=== PATIENT | female | born 1985 | race Caucasian/White ===

== ENCOUNTER 2017-09-18 16:58 | Observation (INO) | payer SELFPAY ==
[2017-09-18] MEDS ORDERED: NS 1000 ML 1,000 ML IV SCH (18:00)
[2017-09-18] MEDS: PHENERGAN INJ 25 MG IV PRN ×2 (18:34→22:36)
[2017-09-18] MEDS: ROCEPHIN VIAL 1 GM 1 GM in NS 100 ML IV + SPIKE MINIBAG* 100 ML IV SCH (18:34)
[2017-09-18] MEDS: DEMEROL INJ IVP PRN ×2 (18:35→22:36)
[2017-09-18 18:41] VITALS: BMI 29.9
[2017-09-18 18:45] LABS: ALBUMIN 2.4 g/dL (3.4-5.0); CALCIUM 8.1 mg/dL (8.5-10.1); CARBON DIOXIDE 26.9 mmol/L (21-32); COR CA(FOR HYPOALB) 9.4 mg/dL (8.5-10.1); CREATININE 3.62 mg/dL (0.55-1.02); TOTAL PROTEIN 6.7 g/dL (6.4-8.2)
[2017-09-18 18:55] LABS: BASOPHILS % (AUTO) 0.1 % (0.2-1.0); EOSINOPHILS # (AUTO) 0.2 x10^3/uL (0.0-0.2); EOSINOPHILS % (AUTO) 0.8 % (0.9-2.9); HEMATOCRIT 31.1 % (36.0-47.0); HEMOGLOBIN 10.9 g/dL (12.0-16.0); LYMPHOCYTES # (AUTO) 0.6 X10^3/uL (1.3-2.9); LYMPHOCYTES % (AUTO) 3.1 % (21.0-51.0); MEAN CORPUSCULAR HEMOGLOBIN 29.8 pg (27.0-34.0); MEAN CORPUSCULAR HGB CONC 34.9 g/dL (33.0-35.0); MEAN CORPUSCULAR VOLUME 85.4 fL (80.0-100.0); MONOCYTES # (AUTO) 0.6 x10^3/uL (0.3-0.8); MONOCYTES % (AUTO) 2.8 % (0.0-13.0); NEUTROPHILS # (AUTO) 19.4 x10^3/uL (2.2-4.8); NEUTROPHILS % (AUTO) 93.2 % (42.0-75.0); PLATELET COUNT 148 X10^3/uL (150.0-450.0); RED BLOOD COUNT 3.64 X10^6/uL (3.5-5.4); RED CELL DISTRIBUTION WIDTH 14.1 % (11.6-16.5); WHITE BLOOD COUNT 20.9 X10^3/uL (3.6-10.0)
[2017-09-18 19:03] LABS: BILIRUBIN,URINE NEGATIVE (NEGATIVE); GLUCOSE, URINE NEGATIVE (NEGATIVE); KETONES,URINE NEGATIVE (NEGATIVE); NITRITES,URINE NEGATIVE (NEGATIVE); UROBILINOGEN,URINE NORMAL (NORMAL)
[2017-09-18 19:04] LABS: BLOOD/HEMOGLOBIN,URINE 3+ (NEGATIVE); LEUKOCYTE ESTERASE ,URINE 2+ (NEGATIVE); PROTEIN,URINE 3+ (NEGATIVE)
[2017-09-18 19:14] LABS: APPEARANCE,URINE HAZY (CLEAR); COLOR,URINE YELLOW (YELLOW)
[2017-09-18 19:15] LABS: BACTERIA,URINE 1+ /HPF (NEGATIVE); RBC,URINE 0-5 /HPF (NONE SEEN); SQUAMOUS EPITHELIAL CELL,UR RARE /HPF (NEGATIVE)
[2017-09-18] MEDS ORDERED: NS 1000 ML 1,000 ML IV ONE ×3 (19:27→21:30)
[2017-09-18 19:31] LABS: BAND NEUTROPHILS % 13 % (0-10); PLATELET MORPHOLOGY COMMENT ABNORMAL (NORMAL)
--- NOTE | 2017-09-18 21:11 | RAD ---
HISTORY: Abdominal Pain Study: Frontal view of the chest, flat and upright views of the abdomen Comparison: None. Findings: Cardiomediastinal silhouette is normal in size. No focal consolidations, pleural effusions or pneumot horax. Ill-defined nodule in the right upper lobe. Osseous structures are without acute abnormality. Flat and upright views of the abdomen demonstrates a normal bowel gas pattern. No free air. No abnor mal calcifications or abnormal soft tissue shadows. No acute bony abnormalities. IMPRESSION: 1. No acute cardiopulmonary disease. 2. No evidence for acute abdominal pathology. 3. Ill-defined right upper lobe nodule. This could be further evaluated with CT of the chest. Reported By:
[2017-09-18] MEDS: PROTONIX INJ 40 MG VIAL IVP SCH (21:50)
[2017-09-18] MEDS ORDERED: MAGNESIUM SULFATE 1 GM/100 mL PREMIX 1 GM/100 ML BAG IV ONE (23:00)
[2017-09-19] MEDS: LR 1000 ML IV 1,000 ML with POTASSIUM CHLORIDE INJ 20 MEQ VIAL 20 MEQ IV SCH ×6 (00:45→14:00)
[2017-09-19] MEDS: DEMEROL INJ IVP PRN ×4 (03:19→21:10)
[2017-09-19] MEDS: PHENERGAN INJ 25 MG IV PRN ×4 (03:19→21:21)
[2017-09-19 05:10] LABS: BASOPHILS % (AUTO) 0 % (0.2-1.0); EOSINOPHILS # (AUTO) 0.1 x10^3/uL (0.0-0.2); EOSINOPHILS % (AUTO) 0.8 % (0.9-2.9); HEMATOCRIT 28.6 % (36.0-47.0); LYMPHOCYTES # (AUTO) 1.1 X10^3/uL (1.3-2.9); LYMPHOCYTES % (AUTO) 6.5 % (21.0-51.0); MEAN CORPUSCULAR HEMOGLOBIN 29.8 pg (27.0-34.0); MEAN CORPUSCULAR VOLUME 85.1 fL (80.0-100.0); MEAN PLATELET VOLUME 9.3 fL (7.4-11.0); MONOCYTES # (AUTO) 0.8 x10^3/uL (0.3-0.8); MONOCYTES % (AUTO) 4.7 % (0.0-13.0); NEUTROPHILS # (AUTO) 14.7 x10^3/uL (2.2-4.8); PLATELET COUNT 106 X10^3/uL (150.0-450.0); RED BLOOD COUNT 3.36 X10^6/uL (3.5-5.4); RED CELL DISTRIBUTION WIDTH 14.1 % (11.6-16.5); WHITE BLOOD COUNT 16.7 X10^3/uL (3.6-10.0)
[2017-09-19 05:21] LABS: ALBUMIN 1.8 g/dL (3.4-5.0); CALCIUM 7.3 mg/dL (8.5-10.1); CARBON DIOXIDE 22.2 mmol/L (21-32); COR CA(FOR HYPOALB) 9.1 mg/dL (8.5-10.1); CREATININE 2.34 mg/dL (0.55-1.02); TOTAL PROTEIN 5.4 g/dL (6.4-8.2)
[2017-09-19] MEDS ORDERED: TAMIFLU PO SCH (10:00)
[2017-09-19] MEDS: PROTONIX INJ 40 MG VIAL IVP SCH ×2 (10:05→21:10)
[2017-09-19] MEDS: MAGIC MOUTHWASH MT PRN (10:05)
[2017-09-19] MEDS: ROCEPHIN VIAL 1 GM 1 GM in NS 100 ML IV + SPIKE MINIBAG* 100 ML IV SCH (10:05)
[2017-09-19] MEDS: TUSSIONEX PENNKINETIC SUSP PO PRN (10:05)
--- NOTE | 2017-09-19 10:16 | DR.UPDATE ---
H&P Update History and Physical Update: WAS SEEN IN THE OFFICE ON 02/15/2018. SHE WAS ADMITTED FOR DEHYDRATION, INFLUENZA, AND ABDOMINAL PAIN, S/P HYSTERECTOMY 3 WEEKS AGO. A H&P WAS COMPLETED PRIOR TO ADMISSION. PATIENT HAS BEEN SEEN AND EXAMINED WITH NO CHANGES NOTED TO H&P. Changes noted: NO Yes with the following:
[2017-09-19] MEDS: NICOTINE PATCH TD SCH (10:22)
[2017-09-19] MEDS: DUONEB 0.5 MG/3 MG NEB SCH ×4 (10:36→20:51)
--- NOTE | 2017-09-19 10:49 | CT ---
CT CHEST WITH IV CONTRAST HISTORY: Lung nodule Comparison: None Technique: Multiple axial images of the chest were obtained from the thoracic inlet to the upper abdo men after the administration of IV contrast.Dose reduction techniques including Automated Exposure Co ntrol (AEC) and adjustment of mA and kV were utlized. Findings: The heart is normal in size. No pericardial effusion. No suspicious mediastinal or axillary lymph no hemanth. Although not optimized to detect pulmonary embolism, no large central pulmonary emboli are seen. No focal consolidations, pleural effusions or pneumothorax. Scattered bibasilar dependent atelectasis Airways are patent. No suspicious pulmonary nodules or masses. Limited images of the upper abdomen are unremarkable. No aggressive osseous lesions. Old anterior right 2nd rib fracture of the likely source of finding on chest x-ray. IMPRESSION: 1. Old anterior right 2nd rib fracture is likely source of finding on chest x-ray. No suspicious pul monary nodules. Reported By:
[2017-09-19] MEDS: ZESTRIL TAB 10 MG PO SCH (12:20)
[2017-09-19] MEDS: ROBITUSSIN DM PO SCH ×3 (12:20→21:09)
[2017-09-19] MEDS ORDERED: ZOFRAN TAB 4 MG PO PRN (12:22)
[2017-09-19] MEDS ORDERED: TYLENOL 325 MG TAB PO PRN (15:29)
[2017-09-19] MEDS ORDERED: LEVAQUIN PREMIX IV 750 MG 750 MG/150 ML BAG IV SCH ×2 (16:00→17:00)
[2017-09-19] MEDS ORDERED: TYLENOL 325 MG TAB PO ONE (16:07)
[2017-09-19] MEDS ORDERED: LEVAQUIN PREMIX IV 750 MG 750 MG/150 ML BAG IV ONE (16:07)
[2017-09-19] MEDS: FORTAZ or TAZICEF INJ 1 GM in NS 100 ML IV + SPIKE MINIBAG* 100 ML IV SCH ×2 (16:18→21:10)
[2017-09-19] MEDS: CHECK PATCH XX SCH (21:11)
[2017-09-20] MEDS: LR 1000 ML IV 1,000 ML with POTASSIUM CHLORIDE INJ 20 MEQ VIAL 20 MEQ IV SCH ×6 (00:45→18:17)
[2017-09-20] MEDS: PHENERGAN INJ 25 MG IV PRN ×5 (02:11→21:38)
[2017-09-20] MEDS: DEMEROL INJ IVP PRN ×5 (02:11→21:37)
[2017-09-20] MEDS: FORTAZ or TAZICEF INJ 1 GM in NS 100 ML IV + SPIKE MINIBAG* 100 ML IV SCH ×3 (05:19→21:32)
[2017-09-20 06:17] LABS: BASOPHILS % (AUTO) 0.1 % (0.2-1.0); EOSINOPHILS # (AUTO) 0.1 x10^3/uL (0.0-0.2); EOSINOPHILS % (AUTO) 0.4 % (0.9-2.9); HEMATOCRIT 30.6 % (36.0-47.0); HEMOGLOBIN 10.4 g/dL (12.0-16.0); LYMPHOCYTES % (AUTO) 16.4 % (21.0-51.0); MEAN CORPUSCULAR HEMOGLOBIN 29.2 pg (27.0-34.0); MEAN CORPUSCULAR HGB CONC 33.9 g/dL (33.0-35.0); MEAN CORPUSCULAR VOLUME 86.3 fL (80.0-100.0); MEAN PLATELET VOLUME 9.6 fL (7.4-11.0); MONOCYTES # (AUTO) 0.9 x10^3/uL (0.3-0.8); MONOCYTES % (AUTO) 7.9 % (0.0-13.0); NEUTROPHILS # (AUTO) 9.1 x10^3/uL (2.2-4.8); NEUTROPHILS % (AUTO) 75.2 % (42.0-75.0); PLATELET COUNT 96 X10^3/uL (150.0-450.0); RED BLOOD COUNT 3.54 X10^6/uL (3.5-5.4); RED CELL DISTRIBUTION WIDTH 14.3 % (11.6-16.5); WHITE BLOOD COUNT 12.1 X10^3/uL (3.6-10.0)
[2017-09-20 06:33] LABS: ALANINE AMINOTRANSFERASE 32 Units/L (12-78); ALBUMIN 1.8 g/dL (3.4-5.0); ALKALINE PHOSPHATASE 156 Units/L (46-116); ASPARTATE AMINO TRANSFERASE 26 Units/L (15-37); BLOOD UREA NITROGEN 14 mg/dL (7-18); CALCIUM 8.1 mg/dL (8.5-10.1); CARBON DIOXIDE 24.7 mmol/L (21-32); CHLORIDE 106 mmol/L (98-107); COR CA(FOR HYPOALB) 9.9 mg/dL (8.5-10.1); CREATININE 1.78 mg/dL (0.55-1.02); SODIUM 141 mmol/L (136-145); TOTAL PROTEIN 5.7 g/dL (6.4-8.2); eGFR BLACK RACES 42 (>60); eGFR NON BLACK RACES 35 (>60)
--- NOTE | 2017-09-20 07:08 | RAD ---
HISTORY: Shortness of breath Study: Chest AP portable Comparison: Chest CT 09/19/2017 Findings: The heart is within normal limits in size. The pushpa are normal. The lungs are well inflated and free of acute infiltrates. No pleural effusions are identified. The bony thorax is unremarkable. IMPRESSION: Lungs clear Reported By:
[2017-09-20] MEDS: CELEXA PO SCH (08:43)
[2017-09-20] MEDS: ROBITUSSIN DM PO SCH ×4 (08:43→21:35)
[2017-09-20] MEDS: TAMIFLU PO SCH (08:45)
[2017-09-20] MEDS: ZESTRIL TAB 10 MG PO SCH (08:46)
[2017-09-20] MEDS: PROTONIX INJ 40 MG VIAL IVP SCH ×2 (08:46→21:37)
[2017-09-20] MEDS: NICOTINE PATCH TD SCH (08:46)
[2017-09-20] MEDS: CHECK PATCH XX SCH ×2 (08:49→21:37)
[2017-09-20] MEDS: VALIUM PO PRN (08:54)
[2017-09-20] MEDS: MOTRIN TAB 400 MG PO PRN ×2 (08:54→18:17)
[2017-09-20] MEDS: DUONEB 0.5 MG/3 MG NEB SCH ×4 (08:55→20:48)
[2017-09-20] MEDS: MAGIC MOUTHWASH MT PRN (10:10)
[2017-09-20] MEDS ORDERED: PHARMACY CONSULT - DOSE _____ XX SCH (12:00)
--- NOTE | 2017-09-20 13:21 | PCM.PROG ---
Progress Note - Progress Note for Day of Date: 09/19/17 - Subjective Subjective: IS BEING TREATED FOR DEHYDRATION, INFLUENZA, AND ABDOMINAL PAIN. PATIENT IS STATUS POST HYSTERECTOMY 3 WEEKS AGO. TODAY, SHE IS ALERT AND ORIENTED, LYING IN BED ON MORNING ROUNDS. SHE IS NOTED WITH COMPLAINTS OF A PRODUCTIVE COUGH, SHORTNESS OF BREATH, AND SHE CONTINUES WITH ABDOMINAL PAIN. PATIENT REPORTS COUGHING UP BLOOD THIS MORNING. PATIENT ALSO REPORTS PAIN TO HER MOUTH. ON EXAMINATION, PATIENT IS NOTED WITH WHITE ULCERS COVERING MOUTH. SHE IS SLIGHTLY TACHYCARDIC WITH HR 110-120 BPM. BILATERAL LUNGS ARE NOTED WITH DIMINISHED LUNG SOUNDS THROUGHOUT. ABDOMEN IS ROUND, SOFT, AND NOTED WITH MILD, SUPRAPUBIC TENDERNESS TO PALPATION. NORMAL BOWEL SOUNDS ARE NOTED IN ALL QUADRANTS. THERE IS NORMAL RANGE OF MOTION NOTED TO ALL EXTREMITIES. HER VITALS THIS MORNING ARE 101.3-118-20-91% RA, 122/78. LABS WERE OBTAINED THIS MORNING. ABNORMAL LAB VALUES INCLUDE THE FOLLOWING: WBC 16.7, RBC 3.36, HGB 10.0, HCT 28.6, PLT COUNT 106, SODIUM 135, POTASSIUM 2.8, BUN 26, CREATININE 2.34, GLUCOSE 114, CALCIUM 7.3, ALK PHOS 151, TOTAL PROTEIN 5.4, ALBUMIN 1.8. A URINALYSIS THAT WAS OBTAINED ON ADMISSION REVEALED A URINARY TRACT INFECTION. URINE CULTURE AND BLOOD CULTURES ARE PENDING. AN ABDOMEN CT THAT WAS OBTAINED ON ADMISSION REVEALED AN ILL DEFINED RIGHT UPPER LOBE NODULE. THIS COULD BE FURTHER EVALUATED WITH CT OF THE CHEST. TODAY, WE PLAN TO OBTAIN A CHEST CT WITH CONTRAST. WE WILL START PATIENT ON LEVAQUIN AND FORTAZ WELL RESPIRATORY TREATMENTS FOR TREATMENT OF BRONCHOPNEUMONIA. WE WILL ALSO START MAGIC MOUTHWASH FOR ORAL CANDIDIASIS AND TAMIFLU. WE PLAN TO FOLLOW UP WITH AM LABS AND CHEST XRAY AND CONTINUE TO MONITOR PATIENT. - Past Medical Family Social History Past Med/Fam/Surg Hx: No changes since H&P Allergies: Allergies furosemide [From Lasix] Allergy (Verified 09/18/17 18:02) hydromorphone [From Dilaudid] Allergy (Verified 09/18/17 18:02) ketorolac [From Toradol] Allergy (Verified 09/18/17 18:02) morphine Allergy (Verified 09/18/17 18:02) tramadol Allergy (Verified 09/18/17 18:02) - Review of Systems ROS: No change since H&P - Vital Signs and I&O's Vital Signs: Temperature 100.6 F Pulse Rate [Right Brachial] 124 Pulse Rate 101 Respiratory Rate 20 Blood Pressure [Right Arm] 134/88 O2 Sat by Pulse Oximetry 98 Intake and Output: Intake & Output 09/18/17 09/19/17 09/20/17 09/21/17 11:59 11:59 11:59 11:59 Intake Total 9385 7620 Balance 9385 7620 - Physical Exam Oriented: Normal Eyes: Normal Ear: Normal Nose: Normal Throat: Other (PATCHY WHITE SORES IN MOUTH ) Respiratory: Generalized, Diminished Cardiovascular: Tachycardia. negative: S3, S4, Murmur : Normal Auscultation: Bowel Sounds: Normal Palpation: Normal Tenderness: Suprapubic, Mild. negative: Rebound, Guarding, Rigidity Skin: Normal Musculoskeletal: Normal Psychiatric: Normal Mood Description: Calm Affect: Normal Speech Pattern: Clear, Appropriate - Laboratory and Diagnostics Result Diagrams: 09/20/17 05:35 09/20/17 05:35 Labs: 09/18/17 18:27 Blood Blood Culture - Preliminary 09/18/17 18:11 Blood Blood Culture - Preliminary 09/19/17 10:28 Sputum - Expectorated Sputum Sputum Culture - Preliminary 09/19/17 10:28 Sputum - Expectorated Sputum - Final 09/18/17 18:47 Urine,Clean Catch Urine Culture - Final Escherichia Coli Laboratory WBC 12.1 X10^3/uL (3.6-10.0) H 09/20/17 05:35 RBC 3.54 X10^6/uL (3.5-5.4) 09/20/17 05:35 Hgb 10.4 g/dL (12.0-16.0) L 09/20/17 05:35 Hct 30.6 % (36.0-47.0) L 09/20/17 05:35 MCV 86.3 fL (80.0-100.0) 09/20/17 05:35 MCH 29.2 pg (27.0-34.0) 09/20/17 05:35 MCHC 33.9 g/dL (33.0-35.0) 09/20/17 05:35 RDW 14.3 % (11.6-16.5) 09/20/17 05:35 Plt Count 96 X10^3/uL (150.0-450.0) L 09/20/17 05:35 Plt Count Comment Decreased (ADEQUATE) A 09/18/17 18:11 MPV 9.6 fL (7.4-11.0) 09/20/17 05:35 Neut % 75.2 % (42.0-75.0) H 09/20/17 05:35 Lymph % 16.4 % (21.0-51.0) L 09/20/17 05:35 [place] % 7.9 % (0.0-13.0) 09/20/17 05:35 Eos % 0.4 % (0.9-2.9) L 09/20/17 05:35 Baso % 0.1 % (0.2-1.0) L 09/20/17 05:35 Neut # 9.1 x10^3/uL (2.2-4.8) H 09/20/17 05:35 Lymph # 2.0 X10^3/uL (1.3-2.9) 09/20/17 05:35 [place] # 0.9 x10^3/uL (0.3-0.8) H 09/20/17 05:35 Eos # 0.1 x10^3/uL (0.0-0.2) 09/20/17 05:35 Baso # 0.0 X10^3/uL (0.0-0.1) 09/20/17 05:35 Absolute Nucleated RBC 0.0 /100WBC 09/20/17 05:35 Total Counted 100 09/18/17 18:11 Neutrophils % (Manual) 79 % (39-76) H 09/18/17 18:11 Band Neutrophils % 13 % (0-10) H 09/18/17 18:11 Lymphocytes % (Manual) 4 % (13-43) L 09/18/17 18:11 Monocytes % (Manual) 2 % (4-9) L 09/18/17 18:11 Eosinophils % (Manual) 2 % (0-6) 09/18/17 18:11 Plt Morphology Comment Abnormal (NORMAL) A 09/18/17 18:11 RBC Morphology Normal (NORMAL) 09/18/17 18:11 Sodium 141 mmol/L (136-145) 09/20/17 05:35 Corrected Sodium TNP 09/20/17 05:35 Potassium 3.3 mmol/L (3.5-5.1) L 09/20/17 05:35 Chloride 106 mmol/L (98-107) 09/20/17 05:35 Carbon Dioxide 24.7 mmol/L (21-32) 09/20/17 05:35 BUN 14 mg/dL (7-18) 09/20/17 05:35 Creatinine 1.78 mg/dL (0.55-1.02) H 09/20/17 05:35 Est GFR (MDRD) Af Amer 42 (>60) L 09/20/17 05:35 Est GFR (MDRD) Non-Af 35 (>60) L 09/20/17 05:35 Glucose 100 mg/dL (65-99) H 09/20/17 05:35 Lactic Acid 1.3 mmol/L (0.4-2.0) 09/19/17 15:38 Calcium 8.1 mg/dL (8.5-10.1) L 09/20/17 05:35 Corrected Calcium 9.9 mg/dL (8.5-10.1) 09/20/17 05:35 Magnesium 1.7 mg/dL (1.7-2.9) 09/19/17 04:46 Total Bilirubin 1.20 mg/dL (0.2-1.0) H 09/20/17 05:35 AST 26 Units/L (15-37) 09/20/17 05:35 ALT 32 Units/L (12-78) 09/20/17 05:35 Alkaline Phosphatase 156 Units/L (46-116) H 09/20/17 05:35 Total Protein 5.7 g/dL (6.4-8.2) L 09/20/17 05:35 Albumin 1.8 g/dL (3.4-5.0) L 09/20/17 05:35 Globulin 3.9 g/dL (2.5-4.5) 09/20/17 05:35 Albumin/Globulin Ratio 0.5 Ratio (1.1-2.1) L 09/20/17 05:35 Specimen Type Clean catch urine 09/18/17 18:47 Urine Color Yellow (YELLOW) 09/18/17 18:47 Urine Appearance Hazy (CLEAR) 09/18/17 18:47 Urine pH 5.0 (5.0 - 8.0) 09/18/17 18:47 Ur Specific [place] 1.010 (1.000-1.030) 09/18/17 18:47 Urine Protein 3+ (NEGATIVE) 09/18/17 18:47 Urine Glucose (UA) Negative (NEGATIVE) 09/18/17 18:47 Urine Ketones Negative (NEGATIVE) 09/18/17 18:47 Urine Occult Blood 3+ (NEGATIVE) 09/18/17 18:47 Urine Nitrite Negative (NEGATIVE) 09/18/17 18:47 Urine Bilirubin Negative (NEGATIVE) 09/18/17 18:47 Urine Urobilinogen Normal (NORMAL) 09/18/17 18:47 Ur Leukocyte Esterase 2+ (NEGATIVE) 09/18/17 18:47 Urine RBC 0-5 /HPF (NONE SEEN) 09/18/17 18:47 Urine WBC 20-30 /HPF (NONE SEEN) 09/18/17 18:47 Ur Squamous Epith Cells Rare /HPF (NEGATIVE) 09/18/17 18:47 Urine Bacteria 1+ /HPF (NEGATIVE) 09/18/17 18:47 Ur Culture Indicated? Yes/culture set up 09/18/17 18:47 Influenza Type A (PCR) Negative (NEGATIVE) 09/18/17 18:47 Influenza Type B (PCR) Negative (NEGATIVE) 09/18/17 18:47 - Plan (1) Dehydration Status: Acute Plan: NORMAL SALINE AT 125ML/HR, CONTINUE TO MONITOR (2) Bronchopneumonia Status: Acute Plan: PNEUMONIA PROTOCOL, NATALYA, LEVBENY, RESPIRATORY TREATMENTS, CONTINUE TO MONITOR (3) Influenza Status: Acute Plan: TAMIFLU 75MG PO BID, CONTINUE TO MONITOR (4) Oral candidiasis Status: Acute Plan: MAGIC MOUTHWASH QID, CONTINUE TO MONITOR (5) Status post hysterectomy Status: Acute Plan: CONTINUE TO MONITOR
[2017-09-20] MEDS: ALBUMIN HUMAN 25%- 100ML 100 ML IV SCH (13:27)
[2017-09-20] MEDS: PATIENT'S HOME MEDICATION PO SCH ×2 (14:59→21:36)
[2017-09-20] MEDS: COLACE CAP 100 MG PO SCH ×2 (17:13→21:35)
[2017-09-21] MEDS: LR 1000 ML IV 1,000 ML with POTASSIUM CHLORIDE INJ 20 MEQ VIAL 20 MEQ IV SCH ×4 (01:21→02:02)
[2017-09-21] MEDS: DEMEROL INJ IVP PRN ×2 (02:16→07:26)
[2017-09-21] MEDS: TUSSIONEX PENNKINETIC SUSP PO PRN (02:17)
[2017-09-21] MEDS: VALIUM PO PRN (02:17)
[2017-09-21] MEDS: PHENERGAN INJ 25 MG IV PRN ×2 (02:17→07:26)
[2017-09-21] MEDS: PATIENT'S HOME MEDICATION PO SCH (06:11)
[2017-09-21] MEDS: FORTAZ or TAZICEF INJ 1 GM in NS 100 ML IV + SPIKE MINIBAG* 100 ML IV SCH (06:11)
[2017-09-21 06:53] LABS: BASOPHILS % (AUTO) 0.3 % (0.2-1.0); EOSINOPHILS # (AUTO) 0.2 x10^3/uL (0.0-0.2); EOSINOPHILS % (AUTO) 1.2 % (0.9-2.9); HEMATOCRIT 28.7 % (36.0-47.0); HEMOGLOBIN 9.8 g/dL (12.0-16.0); LYMPHOCYTES # (AUTO) 1.9 X10^3/uL (1.3-2.9); MEAN CORPUSCULAR HEMOGLOBIN 29.7 pg (27.0-34.0); MEAN CORPUSCULAR HGB CONC 34.3 g/dL (33.0-35.0); MEAN CORPUSCULAR VOLUME 86.6 fL (80.0-100.0); MEAN PLATELET VOLUME 9.1 fL (7.4-11.0); MONOCYTES # (AUTO) 1.2 x10^3/uL (0.3-0.8); MONOCYTES % (AUTO) 8.5 % (0.0-13.0); PLATELET COUNT 91 X10^3/uL (150.0-450.0); RED BLOOD COUNT 3.32 X10^6/uL (3.5-5.4); RED CELL DISTRIBUTION WIDTH 14.5 % (11.6-16.5); WHITE BLOOD COUNT 14.2 X10^3/uL (3.6-10.0)
[2017-09-21 07:11] LABS: ALANINE AMINOTRANSFERASE 27 Units/L (12-78); ALBUMIN 2.1 g/dL (3.4-5.0); ALKALINE PHOSPHATASE 161 Units/L (46-116); ASPARTATE AMINO TRANSFERASE 22 Units/L (15-37); BLOOD UREA NITROGEN 11 mg/dL (7-18); CALCIUM 8.7 mg/dL (8.5-10.1); CARBON DIOXIDE 21.7 mmol/L (21-32); CHLORIDE 106 mmol/L (98-107); COR CA(FOR HYPOALB) 10.2 mg/dL (8.5-10.1); CREATININE 1.48 mg/dL (0.55-1.02); SODIUM 140 mmol/L (136-145); TOTAL PROTEIN 5.8 g/dL (6.4-8.2); eGFR BLACK RACES 52 (>60); eGFR NON BLACK RACES 43 (>60)
--- NOTE | 2017-09-21 07:30 | RAD ---
HISTORY: Shortness of breath . Prior history of hypertension, COPD and asthma. Study: Single-view chest Comparison: 09/20/2017. Findings: Trachea is midline. Heart size is normal. There is hyperinflation of the lungs with increased interst itial markings in the lung bases. Findings are compatible with asthmatic bronchitis. No dense consoli dation, pleural fluid or pneumothorax is seen. Osseous structures are intact. IMPRESSION: Findings compatible with asthmatic bronchitis. No consolidation is seen. Reported By:
[2017-09-21] MEDS ORDERED: MAGNESIUM SULFATE 1 GM/100 mL PREMIX 1 GM/100 ML BAG IV PRN (07:58)
[2017-09-21] MEDS ORDERED: MAG-OX TAB PO PRN (07:58)
[2017-09-21] MEDS ORDERED: K-LYTE EFFERVESCENT PO PRN (07:58)
[2017-09-21] MEDS ORDERED: K-RIDER 10 MEQ/NS 100 ML 10 MEQ/100 ML BAG IV PRN (07:58)
[2017-09-21] MEDS ORDERED: POTASSIUM CHL 40 MEQ/NS 0.45% 500 ML IV PRN (07:58)
[2017-09-21] MEDS ORDERED: POTASSIUM CHL 60 MEQ/NS 0.45% 500 ML IV PRN (07:58)
[2017-09-21] MEDS ORDERED: POTASSIUM CHLORIDE LIQ 20 MEQ UDC PO PRN (07:58)
[2017-09-21] MEDS: TAMIFLU PO SCH (08:37)
[2017-09-21] MEDS: PROTONIX INJ 40 MG VIAL IVP SCH (08:37)
[2017-09-21] MEDS: ZESTRIL TAB 10 MG PO SCH (08:37)
[2017-09-21] MEDS: CELEXA PO SCH (08:37)
[2017-09-21] MEDS: ROBITUSSIN DM PO SCH (08:37)
[2017-09-21] MEDS: ALBUMIN HUMAN 25%- 100ML 100 ML IV SCH (08:38)
[2017-09-21] MEDS: NICOTINE PATCH TD SCH (08:38)
[2017-09-21] MEDS: CHECK PATCH XX SCH (08:43)
[2017-09-21] MEDS: DUONEB 0.5 MG/3 MG NEB SCH (08:44)
[2017-09-21 09:38] VITALS: BP 133/88
== END 2017-09-21 11:45 | disposition home or self-care (01) ==
LOC: MED/SURG 16:58
PROVIDERS: ADMIT Internal Medicine; ATTEND Internal Medicine
DX: E86.0 Dehydration (principal); J18.0 Bronchopneumonia, unspecified organism; J10.1 Influenza due to other identified influenza virus with other respiratory manifestations; N39.0 Urinary tract infection, site not specified; R10.84 Generalized abdominal pain; B37.0 Candidal stomatitis; B96.29 Other Escherichia coli [E. coli] as the cause of diseases classified elsewhere; Z90.710 Acquired absence of both cervix and uterus; R06.02 Shortness of breath
CPT/HCPCS: 36415; 71045; 71260; 74022; 80053; 81001; 83605; 83735; 85025; 87040; 87070; 87086; 87088; 87186; 87205; 87502; 94640; 94760; A4216; A4222; C9113; G9035; P9047; G0378; J0696; J0713; J1956; J2175; J2550; J3480; J7120; J7620

== ENCOUNTER 2017-10-02 21:11 | Emergency (ER) | payer SELFPAY ==
[2017-10-02 21:22] VITALS: BMI 21.5
--- NOTE | 2017-10-02 22:28 | DR.GENAD ---
HPI - PCP Primary Care Physician: alfie davila - HPI Comment HPI Comment: WORSE TONIGHT. STARTED WHEN PATIENT ATE BBQ TWO DAYS AGO. NO FEVER. DIAHRREA IS DESOLVE SINCE LAST NIGHT. NO DYSURIA. - Complaint/Symptoms Chief Complaint Doctors Comments: ABDOMINAL PAIN, N/V/D TIMES 2 DAYS. Chief Complaint:: pt states" i went to a BBQ monday ate hot dog and i've been sick ever since I have vomited t=so much i'm just dry heaving" - Nurses notes reviewed Nurses Notes Review: Yes - Source History Provided: Patient - Mode of Arrival Mode of Arrival: Wheelchair - Timing Onset of Chief Complaint: 09/30/17 Came on: Gradually - Duration Duration: Constant Duration: Days - Severity Severity: Moderate PMH - PMH Past Medical History: Yes Past Medical History: Anxiety, Hypertension Past Surgical History: Yes Surgical History: Hysterectomy, Ortho Surgery, Tonsillectomy, Other - Family History History of Family Medical Conditions: Yes Family Medical History: Diabetes Mellitus, Cancer, MD, Hypertension - Social History Type of Tobacco Use: Cigarettes Lives With: Family Lives Where: Home - infectious screening In the last 2 months have you had wt loss of >10#?: NO Have you had fever, night sweats or hemotysis?: No Have you traveled outside the country in the last 6 months?: No Isolation: Standard ROS - Review of Systems Constitutional: Weakness, Fatigue, Loss of Appetite. negative: Fever Eyes: No Symptoms Reported ENTM: No Symptoms Reported Respiratoy: No Symptoms Reported Cardiovascular: No Symptoms Reported Gastrointestinal/Abdominal: Abdominal Pain, Diarrhea (RESOLVED), Nausea, Vomiting Genitourinary: Dysuria, Frequency, Hematuria Neurological: Headache, Weakness, Dizziness Musculoskeletal: Muscle Pain Integumentary: Dryness. negative: Bruises Hematologic/Lymphatic: No Symptoms Reported Endocrine: No Symptoms Reported All Other Systems: Reviewed and Negative PE - Vital Signs Vitals: Temperature 98.8 F Pulse Rate [Left Brachial] 92 Pulse Rate 112 Respiratory Rate 18 Blood Pressure [Right Arm] 116/76 Blood Pressure 127/87 O2 Sat by Pulse Oximetry 100 - General Limitations: No Limitations General Appearance: Alert - Head Head Exam: Normal Inspection - Eyes Eye exam: Normal Appearance - ENT ENT Exam: Normal External Ear Exam External Ear Exam: Normal External Inspection TM/Canal Exam: Bilateral Normal Nose Exam: Normal Nose Exam Mouth Exam: Normal Inspection Throat Exam: Normal Inspection - Neck Neck Exam: Trachea Midline - Chest Chest Inspection: Symmetric Chest Wall Rise - Respiratory Respiratory Exam: Normal Lung Sounds Bilat Respiratory Exam: Bilateral Clear to Auscultation - Cardiovascular Cardiovascular Exam: Regular Rate, Normal Rhythm, Normal Heart Sounds - Abdominal Exam Abdominal Exam: Normal Bowel Sounds, Soft, Tenderness Abdominal Tenderness: Diffuse, Moderate - Extremities Extremities Exam: Tenderness - Back Back Exam: Normal Inspection - Neurologic Neurological Exam: Alert, Oriented X3, CN II-XII Intact, Normal Gait. negative : Motor Sensory Deficit - Psychiatric Psychiatric Exam: Anxious - Skin Skin Exam: Erythema MDM - Additional Information Additional Information Obtained From: Family - Differential Diagnosis Differential Diagnosis: ABDOMINAL PAIN, BOWEL OBSTRUCTION, GASTROENTERITIS, PUD , DIVERTICULITIS Course - Treatment Treatment: SEE ORDERS. IV NS BOLUS, IV DEMOROL AND PHENERGAN IN ED. - Reevaluation 1st: Improved - Education/Counseling Education/Counseling: Patient, Family, Education Educated On: Treatment, Diagnosis, Needs for Follow Up ROR - Labs Reviewed Laboratory Results Reviewed?: Yes Result Diagrams: 10/02/17 22:40 10/02/17 22:40 Laboratory: WBC 11.6 X10^3/uL (3.6-10.0) H 10/02/17 22:40 RBC 4.45 X10^6/uL (3.5-5.4) 10/02/17 22:40 Hgb 12.9 g/dL (12.0-16.0) 10/02/17 22:40 Hct 37.2 % (36.0-47.0) 10/02/17 22:40 MCV 83.7 fL (80.0-100.0) 10/02/17 22:40 MCH 29.0 pg (27.0-34.0) 10/02/17 22:40 MCHC 34.6 g/dL (33.0-35.0) 10/02/17 22:40 RDW 14.0 % (11.6-16.5) 10/02/17 22:40 Plt Count 533 X10^3/uL (150.0-450.0) H 10/02/17 22:40 MPV 8.4 fL (7.4-11.0) 10/02/17 22:40 Neut % (Auto) 69.2 % (42.0-75.0) 10/02/17 22:40 Lymph % (Auto) 22.6 % (21.0-51.0) 10/02/17 22:40 [place] % (Auto) 7.1 % (0.0-13.0) 10/02/17 22:40 Eos % (Auto) 0.1 % (0.9-2.9) L 10/02/17 22:40 Baso % (Auto) 1.0 % (0.2-1.0) 10/02/17 22:40 Neut # (Auto) 8.0 x10^3/uL (2.2-4.8) H 10/02/17 22:40 Lymph # (Auto) 2.6 X10^3/uL (1.3-2.9) 10/02/17 22:40 [place] # (Auto) 0.8 x10^3/uL (0.3-0.8) 10/02/17 22:40 Eos # (Auto) 0.0 x10^3/uL (0.0-0.2) 10/02/17 22:40 Baso # (Auto) 0.1 X10^3/uL (0.0-0.1) 10/02/17 22:40 Absolute Nucleated RBC 0.0 /100WBC 10/02/17 22:40 Sodium 134 mmol/L (136-145) L 10/02/17 22:40 Corrected Sodium TNP 10/02/17 22:40 Potassium 3.2 mmol/L (3.5-5.1) L 10/02/17 22:40 Chloride 92 mmol/L (98-107) L 10/02/17 22:40 Carbon Dioxide 28.6 mmol/L (21-32) 10/02/17 22:40 BUN 20 mg/dL (7-18) H 10/02/17 22:40 Creatinine 1.35 mg/dL (0.55-1.02) H 10/02/17 22:40 Est GFR (MDRD) Af Amer 58 (>60) L 10/02/17 22:40 Est GFR (MDRD) Non-Af 48 (>60) L 10/02/17 22:40 Glucose 109 mg/dL (65-99) H 10/02/17 22:40 Calcium 9.6 mg/dL (8.5-10.1) 10/02/17 22:40 Corrected Calcium TNP 10/02/17 22:40 Total Bilirubin 0.40 mg/dL (0.2-1.0) 10/02/17 22:40 AST 21 Units/L (15-37) 10/02/17 22:40 ALT 29 Units/L (12-78) 10/02/17 22:40 Alkaline Phosphatase 126 Units/L (46-116) H 10/02/17 22:40 Total Protein 9.1 g/dL (6.4-8.2) H 10/02/17 22:40 Albumin 4.3 g/dL (3.4-5.0) 10/02/17 22:40 Globulin 4.8 g/dL (2.5-4.5) H 10/02/17 22:40 Albumin/Globulin Ratio 0.9 Ratio (1.1-2.1) L 10/02/17 22:40 Amylase 73 Units/L (25-115) 10/02/17 22:40 Lipase 101 Units/L (73-393) 10/02/17 22:40 - XRAY XRAY Interpreted by: Radiologist XRAY Findings: REPORT DISCUSS WITH PATIENT. - Diagnosis Discharge Problem: Abdominal pain Qualifiers: Abdominal location: generalized Qualified Code(s): R10.84 - Generalized abdominal pain Nausea & vomiting Qualifiers: Vomiting type: bilious vomiting Qualified Code(s): R11.14 - Bilious vomiting - Discharge Plan Disposition: HOME, SELF-CARE Condition: Stable Prescriptions: Metoclopramide HCl [Reglan] 10 mg PO QID PRN #15 tab PRN Reason: Ondansetron [Zofran ODT 8 mg] 8 mg PO Q8H PRN 12 Days #12 tab PRN Reason: Nausea/Vomiting - Follow ups/Referrals Follow ups/Referrals: [facility],None [Primary Care Provider] - 2 days HILARY ARREDONDO [STAFF PHYSICIAN] - 3 days - Instructions Instructions: Nausea and Vomiting, Adult, [id number], Abdominal Pain, Adult, [id number] Additional Instructions: RETURN TO ED IF WORSE.
[2017-10-02] MEDS ORDERED: NS 1000 ML 1,000 ML IV ONE (22:29)
[2017-10-02] MEDS ORDERED: DEMEROL INJ IVP ONE (22:29)
[2017-10-02] MEDS ORDERED: PHENERGAN INJ 25 MG IV ONE (22:29)
[2017-10-02 22:50] LABS: BASOPHILS # (AUTO) 0.1 X10^3/uL (0.0-0.1); EOSINOPHILS % (AUTO) 0.1 % (0.9-2.9); HEMATOCRIT 37.2 % (36.0-47.0); HEMOGLOBIN 12.9 g/dL (12.0-16.0); LYMPHOCYTES # (AUTO) 2.6 X10^3/uL (1.3-2.9); LYMPHOCYTES % (AUTO) 22.6 % (21.0-51.0); MEAN CORPUSCULAR HGB CONC 34.6 g/dL (33.0-35.0); MEAN CORPUSCULAR VOLUME 83.7 fL (80.0-100.0); MEAN PLATELET VOLUME 8.4 fL (7.4-11.0); MONOCYTES # (AUTO) 0.8 x10^3/uL (0.3-0.8); MONOCYTES % (AUTO) 7.1 % (0.0-13.0); NEUTROPHILS % (AUTO) 69.2 % (42.0-75.0); PLATELET COUNT 533 X10^3/uL (150.0-450.0); RED BLOOD COUNT 4.45 X10^6/uL (3.5-5.4); WHITE BLOOD COUNT 11.6 X10^3/uL (3.6-10.0)
[2017-10-02] MEDS ORDERED: DEMEROL INJ ONE (22:50)
[2017-10-02] MEDS ORDERED: PHENERGAN INJ 25 MG ONE (22:51)
[2017-10-02 23:02] LABS: ALANINE AMINOTRANSFERASE 29 Units/L (12-78); ALBUMIN 4.3 g/dL (3.4-5.0); ALKALINE PHOSPHATASE 126 Units/L (46-116); AMYLASE 73 Units/L (25-115); ASPARTATE AMINO TRANSFERASE 21 Units/L (15-37); BLOOD UREA NITROGEN 20 mg/dL (7-18); CALCIUM 9.6 mg/dL (8.5-10.1); CARBON DIOXIDE 28.6 mmol/L (21-32); CHLORIDE 92 mmol/L (98-107); CREATININE 1.35 mg/dL (0.55-1.02); LIPASE 101 Units/L (73-393); SODIUM 134 mmol/L (136-145); TOTAL PROTEIN 9.1 g/dL (6.4-8.2); eGFR BLACK RACES 58 (>60); eGFR NON BLACK RACES 48 (>60)
--- NOTE | 2017-10-03 00:06 | CT ---
CT abdomen and pelvis without contrast Indication: Abdominal pain, vomiting Comparison: None Technique: CT images of the abdomen and pelvis were obtained without contrast. Automatic exposure con trol was utilized. Findings: The lung bases are clear. No acute skeletal abnormality. Evaluation of the abdominal pelvic viscera is limited without contrast. Accounting for this, the live r, gallbladder, spleen, stomach, duodenum, pancreas, adrenals, and kidneys are unremarkable. No urina ry stones are identified. No significant bowel thickening or dilatation of the lower GI tract. The ap pendix visualized appendix is unremarkable. Small foci of gas are present within the nondependent uri nary bladder, which is otherwise unremarkable. The uterus is not identified. The rectum is unremarkab le. No significant free fluid or adenopathy observed. Impression: No acute process to explain patient's symptoms. Small amount of gas within the urinary bladder lumen suggests recent manipulation/catheterization. Co rrelation is recommended. Reported By:
[2017-10-03] MEDS ORDERED: REGLAN INJ 10 MG VIAL IM ONE (00:28)
[2017-10-03] MEDS ORDERED: REGLAN INJ 10 MG VIAL ONE (00:29)
[2017-10-03] MEDS ORDERED: K-DUR TAB 20 MEQ PO ONE ×2 (00:30)
[2017-10-03] MEDS ORDERED: REGLAN INJ 10 MG VIAL IVP ONE (00:35)
[2017-10-03] MEDS ORDERED: NS + KCL 20 MEQ/L 1,000 ML IV SCH (01:00)
[2017-10-03 01:06] VITALS: BP 116/76
== END 2017-10-03 01:06 | disposition home or self-care (01) ==
LOC: ER 21:26
DX: R10.84 Generalized abdominal pain (principal); R11.14 Bilious vomiting
CPT/HCPCS: 36415; 74176; 80053; 82150; 83690; 85025; 96365; 96374; 96375; 99283; 99285; A4222; J2175; J2550; J2765

== ENCOUNTER 2017-10-06 06:27 | Emergency (ER) | payer SELFPAY ==
[2017-10-06 06:41] VITALS: BP 144/90; BMI 19.5
--- NOTE | 2017-10-06 06:59 | DR.GENAD ---
HPI - PCP Primary Care Physician: alfie davila - HPI Comment HPI Comment: SEEN IN ED HERE AND WILL FOLLOW UP WITH CLINIC DOCTOR TODAY. NO FEVER. - Complaint/Symptoms Chief Complaint Doctors Comments: ABDOMINAL PAIN WITH PERSISTENT NAUSEA VOMITING FOR FEW WEEKS. HAD HYSTERECTOMY. PATIENT IS NOT HOLDING DOWN MED OR FLUID LONG ENOUGH. 30MIN TO 1H AFTER MEDS, IT START ALL OVER. Chief Complaint:: "n/v , my stomach hurts and throat hurts from puking". seen here in er told nothing was wrong, seen alfie a few days later. has tried suppository phenergan, gi cocktail, everything and nothing is helping. Self Treatment fo Chief Complaint: phenergan. gi cocktail. zofran - Nurses notes reviewed Nurses Notes Review: Yes - Source History Provided: Patient - Mode of Arrival Mode of Arrival: Wheelchair - Timing Onset of Chief Complaint: 09/30/17 Came on: Suddenly - Duration Duration: Constant Duration: Days - Severity Severity: Moderate PMH - PMH Past Medical History: Yes Past Medical History: Anxiety, Hypertension Past Surgical History: Yes Surgical History: Hysterectomy, Ortho Surgery, Tonsillectomy, Other - Family History History of Family Medical Conditions: Yes Family Medical History: Diabetes Mellitus, Cancer, [place], Hypertension - Social History Type of Tobacco Use: Cigarettes Alcohol Use: None Do you use any recreational Drugs:: No Lives With: Family Lives Where: Home - infectious screening Have you traveled outside the country in the last 6 months?: No Isolation: Standard ROS - Review of Systems Constitutional: Weakness, Fatigue, Loss of Appetite. negative: Chills, Fever Eyes: negative: Eye Pain, Discharge ENTM: Throat Pain. negative: Ear Pain, Nose Discharge, Nose Congestion Respiratoy: Non-Productive Cough, Short of Breath. negative: Wheezing, Hemoptysis Cardiovascular: No Symptoms Reported Gastrointestinal/Abdominal: Abdominal Pain, Nausea, Vomiting. negative: Constipation, Diarrhea Genitourinary: No Symptoms Reported Neurological: Headache, Weakness, Dizziness Musculoskeletal: Muscle Pain Integumentary: No Symptoms Reported Hematologic/Lymphatic: No Symptoms Reported Endocrine: No Symptoms Reported All Other Systems: Reviewed and Negative PE - Vital Signs Vitals: Temperature 98.2 F Pulse Rate 110 Respiratory Rate 18 Blood Pressure [Right Arm] 116/76 Blood Pressure 144/90 O2 Sat by Pulse Oximetry 99 - General Limitations: No Limitations General Appearance: Alert - Head Head Exam: Normal Inspection - Eyes Eye exam: Normal Appearance - ENT ENT Exam: Normal External Ear Exam External Ear Exam: Normal External Inspection TM/Canal Exam: Bilateral Normal Nose Exam: Normal Nose Exam Mouth Exam: Normal Inspection Throat Exam: Tonsillar Erythema. negative: Tonsillomegaly, Tonsillar Exudate - Neck Neck Exam: Normal Inspection - Chest Chest Inspection: Normal Inspection - Respiratory Respiratory Exam: Normal Lung Sounds Bilat Respiratory Exam: Bilateral Clear to Auscultation - Cardiovascular Cardiovascular Exam: Regular Rate, Normal Rhythm - Abdominal Exam Abdominal Exam: Normal Bowel Sounds, Soft, Tenderness Abdominal Tenderness: Diffuse, Moderate - Extremities Extremities Exam: Normal Inspection - Back Back Exam: Normal Inspection - Neurologic Neurological Exam: Alert, Oriented X3, CN II-XII Intact. negative: Motor Sensory Deficit - Psychiatric Psychiatric Exam: Normal Affect, Normal Mood - Skin Skin Exam: Normal Color MDM - Additional Information Additional Information Obtained From: Family - Differential Diagnosis Differential Diagnosis: ABDOMINAL PAIN, NAUSEA/VOMITING Course - Treatment Treatment: SEE ORDERS. - Reevaluation 1st: Improved (WITH IM NAUSEA MED AND PAIN MED IM.PO POTASSIUM TAKEN IN ED.) - Education/Counseling Education/Counseling: Patient, Family, Education Educated On: Treatment, Diagnosis, Needs for Follow Up ROR - Labs Reviewed Laboratory Results Reviewed?: Yes Result Diagrams: 10/06/17 07:10 10/06/17 07:10 Laboratory: WBC 9.5 X10^3/uL (3.6-10.0) 10/06/17 07:10 RBC 4.65 X10^6/uL (3.5-5.4) 10/06/17 07:10 Hgb 13.4 g/dL (12.0-16.0) 10/06/17 07:10 Hct 39.3 % (36.0-47.0) 10/06/17 07:10 MCV 84.6 fL (80.0-100.0) 10/06/17 07:10 MCH 28.8 pg (27.0-34.0) 10/06/17 07:10 MCHC 34.1 g/dL (33.0-35.0) 10/06/17 07:10 RDW 13.9 % (11.6-16.5) 10/06/17 07:10 Plt Count 450 X10^3/uL (150.0-450.0) 10/06/17 07:10 MPV 7.8 fL (7.4-11.0) 10/06/17 07:10 Neut % (Auto) 60.3 % (42.0-75.0) 10/06/17 07:10 Lymph % (Auto) 32.5 % (21.0-51.0) 10/06/17 07:10 [place] % (Auto) 5.0 % (0.0-13.0) 10/06/17 07:10 Eos % (Auto) 1.6 % (0.9-2.9) 10/06/17 07:10 Baso % (Auto) 0.6 % (0.2-1.0) 10/06/17 07:10 Neut # (Auto) 5.7 x10^3/uL (2.2-4.8) H 10/06/17 07:10 Lymph # (Auto) 3.1 X10^3/uL (1.3-2.9) H 10/06/17 07:10 [place] # (Auto) 0.5 x10^3/uL (0.3-0.8) 10/06/17 07:10 Eos # (Auto) 0.2 x10^3/uL (0.0-0.2) 10/06/17 07:10 Baso # (Auto) 0.1 X10^3/uL (0.0-0.1) 10/06/17 07:10 Absolute Nucleated RBC 0.1 /100WBC 10/06/17 07:10 Sodium 134 mmol/L (136-145) L 10/06/17 07:10 Corrected Sodium 134 mmol/L (136-145) L 10/06/17 07:10 Potassium 3.1 mmol/L (3.5-5.1) L 10/06/17 07:10 Chloride 91 mmol/L (98-107) L 10/06/17 07:10 Carbon Dioxide 33.5 mmol/L (21-32) H 10/06/17 07:10 BUN 11 mg/dL (7-18) 10/06/17 07:10 Creatinine 1.33 mg/dL (0.55-1.02) H 10/06/17 07:10 Est GFR (MDRD) Af Amer 59 (>60) 10/06/17 07:10 Est GFR (MDRD) Non-Af 49 (>60) L 10/06/17 07:10 Glucose 113 mg/dL (65-99) H 10/06/17 07:10 Calcium 9.0 mg/dL (8.5-10.1) 10/06/17 07:10 Corrected Calcium TNP 10/06/17 07:10 Total Bilirubin 0.30 mg/dL (0.2-1.0) 10/06/17 07:10 AST 15 Units/L (15-37) 10/06/17 07:10 ALT 31 Units/L (12-78) 10/06/17 07:10 Alkaline Phosphatase 120 Units/L (46-116) H 10/06/17 07:10 Total Protein 8.4 g/dL (6.4-8.2) H 10/06/17 07:10 Albumin 4.0 g/dL (3.4-5.0) 10/06/17 07:10 Globulin 4.4 g/dL (2.5-4.5) 10/06/17 07:10 Albumin/Globulin Ratio 0.9 Ratio (1.1-2.1) L 10/06/17 07:10 Amylase 58 Units/L (25-115) 10/06/17 07:10 Lipase 95 Units/L (73-393) 10/06/17 07:10 - Diagnosis Discharge Problem: Abdominal pain Qualifiers: Abdominal location: upper abdomen, unspecified Qualified Code(s): R10.10 - Upper abdominal pain, unspecified Nausea & vomiting Qualifiers: Vomiting type: bilious vomiting Qualified Code(s): R11.14 - Bilious vomiting - Discharge Plan Disposition: 01 HOME, SELF-CARE Condition: Stable Prescriptions: Promethazine HCl [Phenergan Supp 25 mg] 25 mg LA Q8H PRN #12 supp.rect PRN Reason: Nausea/Vomiting - Follow ups/Referrals Follow ups/Referrals: ALFIE DAVILA [Primary Care Provider] - 10/06/17 - Instructions Instructions: Nausea and Vomiting, Adult, [id number], Abdominal Pain, Adult, [id number]
[2017-10-06] MEDS ORDERED: PHENERGAN INJ 25 MG IM ONE (07:03)
[2017-10-06] MEDS ORDERED: REGLAN INJ 10 MG VIAL IM PRN (07:03)
[2017-10-06] MEDS ORDERED: DEMEROL INJ IM ONE (07:03)
[2017-10-06] MEDS ORDERED: REGLAN INJ 10 MG VIAL ONE (07:11)
[2017-10-06] MEDS ORDERED: PHENERGAN INJ 25 MG ONE (07:11)
[2017-10-06] MEDS ORDERED: DEMEROL INJ ONE (07:12)
[2017-10-06 07:20] LABS: BASOPHILS # (AUTO) 0.1 X10^3/uL (0.0-0.1); BASOPHILS % (AUTO) 0.6 % (0.2-1.0); EOSINOPHILS # (AUTO) 0.2 x10^3/uL (0.0-0.2); EOSINOPHILS % (AUTO) 1.6 % (0.9-2.9); HEMATOCRIT 39.3 % (36.0-47.0); HEMOGLOBIN 13.4 g/dL (12.0-16.0); LYMPHOCYTES # (AUTO) 3.1 X10^3/uL (1.3-2.9); LYMPHOCYTES % (AUTO) 32.5 % (21.0-51.0); MEAN CORPUSCULAR HEMOGLOBIN 28.8 pg (27.0-34.0); MEAN CORPUSCULAR HGB CONC 34.1 g/dL (33.0-35.0); MEAN CORPUSCULAR VOLUME 84.6 fL (80.0-100.0); MEAN PLATELET VOLUME 7.8 fL (7.4-11.0); MONOCYTES # (AUTO) 0.5 x10^3/uL (0.3-0.8); NEUTROPHILS # (AUTO) 5.7 x10^3/uL (2.2-4.8); NEUTROPHILS % (AUTO) 60.3 % (42.0-75.0); PLATELET COUNT 450 X10^3/uL (150.0-450.0); RED BLOOD COUNT 4.65 X10^6/uL (3.5-5.4); RED CELL DISTRIBUTION WIDTH 13.9 % (11.6-16.5); WHITE BLOOD COUNT 9.5 X10^3/uL (3.6-10.0)
[2017-10-06 07:24] LABS: BLOOD UREA NITROGEN 11 mg/dL (7-18); CARBON DIOXIDE 33.5 mmol/L (21-32); CHLORIDE 91 mmol/L (98-107); COR NA(FOR HYPERGLY) 134 mmol/L (136-145); CREATININE 1.33 mg/dL (0.55-1.02); SODIUM 134 mmol/L (136-145); eGFR BLACK RACES 59 (>60); eGFR NON BLACK RACES 49 (>60)
[2017-10-06 07:29] LABS: ALANINE AMINOTRANSFERASE 31 Units/L (12-78); ALKALINE PHOSPHATASE 120 Units/L (46-116); AMYLASE 58 Units/L (25-115); ASPARTATE AMINO TRANSFERASE 15 Units/L (15-37); LIPASE 95 Units/L (73-393); TOTAL PROTEIN 8.4 g/dL (6.4-8.2)
[2017-10-06] MEDS ORDERED: K-LYTE EFFERVESCENT PO ONE (07:43)
[2017-10-06] MEDS ORDERED: K-DUR TAB 20 MEQ PO ONE ×2 (07:53→08:03)
== END 2017-10-06 08:18 | disposition home or self-care (01) ==
LOC: ER 06:27
DX: R10.84 Generalized abdominal pain (principal); R11.14 Bilious vomiting
CPT/HCPCS: 36415; 80053; 82150; 83690; 85025; 96372; 99283; 99284; J2175; J2550; J2765